=== PATIENT | male | born 1975 | race Caucasian/White ===

== ENCOUNTER 2018-09-20 00:11 | Emergency (ER) | payer SELFPAY ==
[~2018-09-20] VITALS: Wt 94.9 kg
[2018-09-20] MEDS ORDERED: ACETAMINOPHEN 500 MG TAB PO STA (02:17)
[2018-09-20] MEDS ORDERED: IBUP-1542 PO (02:19)
[2018-09-20] MEDS ORDERED: CYCL10TA7 PO (02:19)
[2018-09-20] MEDS ORDERED: ACET500C5 PO (02:19)
[2018-09-20] MEDS ORDERED: DICL100G37 TOP (02:19)
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
[2018-09-20 03:54] VITALS: BP 141/85; PULSE 85; RESP 16
== END 2018-09-20 03:56 | disposition home or self-care (01) ==
LOC: FTE 00:11
DX: S16.1XXA Strain of muscle, fascia and tendon at neck level, initial encounter (principal); S39.012A Strain of muscle, fascia and tendon of lower back, initial encounter; R51 Headache; V48.9XXA Unspecified car occupant injured in noncollision transport accident in traffic accident, initial encounter
CPT/HCPCS: 99283